=== PATIENT | male | born 1945 | race Caucasian/White ===

== ENCOUNTER → 2017-03-21 | Outpatient (CLI) | payer MEDICARE, OTHER ==
[~2017-03-21] MED LIST: ACTOS PO; ALBUTEROL2.5 MG/0.5 IH; ALLOPURINOL300 MG PO; AMLODIPINE BESYL5 MG PO; AMOXIL500 MG PO; ASPIRIN PO; ASPIRIN81 M1 PO; BIOTIN2500 MCG PO; CALCIUM 500 + D1 TAB PO; CALCIUM 600 + D1 TA1 PO; CALCIUM CITRATE1 T12 PO; CERTAGEN PO; CINNAMON +CHROMIUM PO; COLACE PO; COMBIVENT MININEB INH; FISH OIL 1,0001 CAP PO; FISH OIL 10001000 MG PO; FUROSEMIDE40 MG PO; GLIPIZIDE10 MG PO; GLUCOSAMINE; GLUCOSAMINE & C1 CAP PO; GLUCOSAMINE CHO1 CA2 PO; GLUCOTROL PO; HYDRALAZINE HC100 MG PO; IRON1 TAB PO; KEFLEX PO; KEFLEX500 MG PO; LASIX PO; LISINOPRIL PO; LORTAB 10-5001 EACH PO; LORTAB 7.5-5001 TAB; METFORMIN PO; METOPROLOL SUC100 MG PO; METOPROLOL SUCC25 MG PO; METOPROLOL SUCC50 MG PO; MULTIPLE VITAMI1 T11 PO; NORVASC PO; NORVASC10 MG PO; OMEPRAZOLE20 M2 PO; ONGLYZA5 MG PO; OXAPROZIN600 MG PO; OXYGEN; PENICILLIN V P500 MG PO; PRAVACHOL80 MG PO; PRILOSEC PO; SIMVASTATIN40 MG PO; SPIRIVA18 MCG INH; SYMBICORT INH; TOPROL XL PO; TYLOX1 CAP 5/50 PO; VIT E PO; VITAMIN D 22000 UNIT PO; VITAMIN D-32000 UNIT PO; VITAMIN D5000 UNIT PO; VITAMIN E400 UNI2 PO; ZEGERID40 MG/PKT PO; ZESTRIL40 MG PO; ZOCOR PO; ZOCOR80 MG PO; ZYLOPRIM PO
--- NOTE | ~2017-03-21 | US84 ---
[id number] [address] [address] [id number] O MR#: [id number] Acc #: [id number] NAME: LOUIE MUNGUIA : 1945 SEX: M STUDY DATE/TIME: 03/21/2017 12:26 UNIT: [facility] ROOM: STUDY DESCRIPTION: US LE Veins Complete Kam Stdy Attending Physician: Steven Fontana D.O. Referring Physician: Steven Fontana D.O. Ordering Physician: Steven Fontana D.O. Primary Care Physician: Steven Fontana D.O. MEDICAL IMAGING REPORT This report is preliminary unless electronic signature is present. EXAM Bilateral lower extremity venous ultrasound HISTORY Bilateral lower extremity swelling for 1 week. Status post fall 1 month ago. No previous DVT. TECHNIQUE Venous ultrasound examination of both lower extremities was performed using grayscale, spectral Doppler and color flow Doppler imaging. FINDINGS The examination is negative. There is no evidence of deep venous thrombus from the groin to the lower calf bilaterally. Visualized greater saphenous veins are also patent. IMPRESSION Negative examination. No evidence of lower extremity DVT. ADDENDUM Doppler pulse-wave interrogation in the bilateral common femoral veins, femoral veins and profunda femoris vein is somewhat pulsatile. This may be a reflection of the patient's cardiac status. Correlate with any clinical indications of cardiac congestion. There is some evidence of mild subcutaneous edema in the right foreleg. Dictated by... Naveen Frank M.D. THIS IS AN ELECTRONICALLY VERIFIED REPORT Naveen Frank M.D. at 03/21/2017 6:04 PM KRISTI/[email or web address] TD: 03/21/2017 15:43 JOB #: [id number] MEDICAL IMAGING REPORT Page 1 of 1
== END | disposition home or self-care (01) ==
LOC: SNIV 12:23
DX: M79.89 Other specified soft tissue disorders (principal); C34.90 Malignant neoplasm of unspecified part of unspecified bronchus or lung; Z79.1 Long term (current) use of non-steroidal anti-inflammatories (NSAID)
CPT/HCPCS: 93970